=== PATIENT | male | born 1975 | race Caucasian/White ===

== ENCOUNTER 2018-05-09 07:17 | Emergency (ER) | payer BC ==
[2018-05-09] MEDS: HYDROcodone/APAP 5/325MG 1 TAB TABLET PO (08:51)
== END 2018-05-09 09:00 | disposition home or self-care (01) ==
LOC: ER 09:00
DX: L02.31 Cutaneous abscess of buttock (principal); L02.611 Cutaneous abscess of right foot
CPT/HCPCS: 99283